=== PATIENT | female | born 1995 | race Two or more races ===

== ENCOUNTER 2024-07-28 12:59 | Emergency (ER) | payer MEDICAID, SELFPAY ==
[2024-07-28 12:59] VITALS: BMI 44.1
[2024-07-28 13:34] VITALS: BP 130/86; PULSE 87; RESP 18; TEMP 36.7; O2SAT 99
--- NOTE | 2024-07-28 14:01 | XR_ITS ---
Examination: CT abdomen and pelvis without contrast. Coronal 3-D reconstructions. Sagittal 2-D reconstructions. Date and time of exam:July 28, 2024 1652 hours Comparison 04/13/2024 INDICATIONS: Left-sided flank pain beginning today, diagnosis (moderate tumor 04/13/2024 CTDI: vol (mGy): 14 DLP: (mGycm): 791 Technique: Axial images of the abdomen have been obtained, 3 mm slice thickness Intravenous contrast material has not been administered. Low dose protocols were performed. One or more of the following dose reduction techniques were used; automated exposure control, adjustment of the mA and/or KV according to patient size, use of iterative reconstruction technique. 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
--- NOTE | 2024-07-28 14:02 | PD.EDRME ---
Rapid Medical Screening Exam RME Arrival date/time: 07/28/24 12:59 29-year-old female presents emergency department complaints of left-sided abdominal pain Chief Complaint: Abdominal Pain Time Seen by Provider: 07/28/24 13:57 Vital signs: Vital Signs Temperature 98.1 F 07/28/24 13:34 Pulse Rate 87 07/28/24 13:34 Respiratory Rate 18 07/28/24 13:34 Blood Pressure 130/86 H 07/28/24 13:34 Pulse Oximetry (%) 99 07/28/24 13:34 Oxygen Delivery Method Room Air 07/28/24 13:34
[2024-07-28 14:42] LABS: Basophils % (Auto) 1 % (0-2.5); Eosinophils # (Auto) 0.2 Thou/mm3 (0.0-0.5); Eosinophils % (Auto) 3 % (0-10); Hematocrit 43.9 % (36.0-46.0); Hemoglobin 14.6 g/dL (12.0-16.0); Immature Granulocytes % (Auto) 0 % (0-0); Immature Granulocytes Auto 0.02 Thou/mm3 (0.00-0.00); Lymphocytes # (Auto) 1.7 Thou/mm3 (1.0-4.8); Lymphocytes % (Auto) 26 % (10-50); Mean Corpuscular HGB Conc 33.3 g/dl (31.0-37.0); Mean Corpuscular Volume 87 fL (80-100); Monocytes # (Auto) 0.6 Thou/mm3 (0.0-0.8); Monocytes % (Auto) 9 % (0-12); Neutrophils # (Auto) 3.9 Thou/mm3 (1.8-7.7); Neutrophils % (Auto) 61 % (37-80); Nucleated Red Blood Cell % 0 /100 WBC (0); Platelet Count 335 Thou/mm3 (140-440); RDW Standard Deviation 42.5 fL (36.4-46.3); Red Blood Count 5.04 Miln/mm3 (4.00-5.20); White Blood Count 6.4 Thou/mm3 (3.6-11.0)
[2024-07-28 14:54] LABS: Collection Type, Urine Clean Catch
[2024-07-28 15:01] LABS: Alanine Aminotransferase 28 U/L (10-49); Albumin, Serum 4.9 gm/dL (3.5-5.0); Albumin/Globulin Ratio 1.5 (1.2-2.2); Alkaline Phosphatase 88 U/L (46-116); Anion Gap 10 (7-16); Aspartate Amino Transferase 23 U/L (0-34); BUN/Creatinine Ratio 16 Ratio (12-20); Bilirubin,Total 0.6 mg/dL (0.3-1.2); Blood Urea Nitrogen 11 mg/dL (9-23); Calcium 9.9 mg/dL (8.3-10.6); Calcium (Corrected) 9.9 mg/dL (8.5-10.1); Carbon Dioxide 27.5 mMol/L (20.0-31.0); Chloride 102 mMol/L (98-107); Creatinine (Component) 0.7 mg/dL (0.6-1.3); Estimated Creatinine Clearance 135.6 mL/min (>60); Globulin 3.3 gm/dL (2.3-3.5); Glucose 106 mg/dL (74-106); Lipase 40 U/L (12-53); Osmolality,Calculated 276 (275-295); Potassium 4.1 mMol/L (3.4-5.1); Sodium 139 mMol/L (136-145); Total Protein 8.2 gm/dL (5.7-8.2); eGFR > 60 See Note
[2024-07-28 15:06] LABS: HCG Qualitative,Urine Negative
[2024-07-28 15:09] LABS: Bilirubin,Urine Negative (Negative); Blood,Urine Negative (Negative); Color,Urine Yellow (Lt Yel-Yel); Culture Indicated,Urine Not Indicated; Glucose, Urine Negative (Negative); Ketones,Urine Negative (Negative); Leukocyte Esterase,Urine Negative (Negative); Nitrite,Urine Negative (Negative); PH,Urine 6.5 (5.0-7.0); Protein,Urine 1+ (Neg - Trace); RBC,Urine 5 /hpf (0-3); Squamous Epithelial Cell,Urine 17 /hpf (0-5); Urobilinogen,Urine Negative mg/dL (0.0-1.0); WBC,Urine 2 /hpf (0-5)
[2024-07-28 15:16] LABS: Clarity,Urine Hazy (Clear/Hazy)
[2024-07-28] MEDS: HYDROcodone/APAP 5/325 TABLET 1 TAB PO (16:02)
[2024-07-28 19:42] VITALS: BP 125/78; PULSE 77; RESP 17; TEMP 36.8; O2SAT 100
--- NOTE | 2024-07-28 20:41 | PD.EDABDPN ---
ED Abdominal Pain RME/HPI General Chief Complaint: Abdominal Pain Stated complaint: LEFT UPPER ABD. PAIN WITH NAUSEA X1 WK Time seen by provider: 07/28/24 13:57 Arrival date/time: 07/28/24 12:59 RME / HPI RME / HPI narrative: 07/28/24 12:59 29-year-old female presents emergency department complaints of left-sided abdominal pain DR. WALKER MAIN ED EVALUATION: Related Data Previous Rx's ?Medication ?Instructions ?Recorded meloxicam 7.5 mg tablet 7.5 mg PO QDAY #14 tabs 05/21/23 ondansetron 4 mg disintegrating 4 mg PO Q8H #10 tabs 05/21/23 tablet ibuprofen 800 mg tablet 800 mg PO TID PRN pain #30 tabs 11/05/23 Allergies Allergy/AdvReac Type Severity Reaction Status Date / Time egg Allergy Severe Swelling Verified 07/28/24 13:01 salmon oil Allergy Severe Swelling Verified 07/28/24 13:01 of Lip/Tongue/Throat Course Orders Category Date Time Status CT abdomen pelvis wo con Stat Exams 07/28/24 14:01 Completed CBC Stat Lab 07/28/24 14:06 Completed Comprehensive Metabolic Panel Stat Lab 07/28/24 14:06 Completed HCG Qualitative,Urine Stat Lab 07/28/24 14:45 Completed Lipase Stat Lab 07/28/24 14:06 Completed UA, C/S IF [Urinalysis, C/S if Indicated] Stat Lab 07/28/24 14:45 Completed HYDROcodone*/APAP 5/325 [[place] 5/325] Med 07/28/24 14:01 Discontinued 1 tab PO X1 ONE Vital Signs Vital signs: Vital Signs Temperature 98.1 F 07/28/24 13:34 Pulse Rate 87 07/28/24 13:34 Respiratory Rate 18 07/28/24 13:34 Blood Pressure 130/86 H 07/28/24 13:34 Pulse Oximetry (%) 99 07/28/24 13:34 Oxygen Delivery Method Room Air 07/28/24 13:34 Abdominal Pain MDM Medications / Prescriptions Medication administrations:: Medication Administration History Discontinued Medications Hydrocodone Bitart/Acetaminophen (Hydrocodone/Apap 5/325 Tablet) 1 tab PO X1 ONE Stop: 07/28/24 14:02 Last Admin: 07/28/24 16:02 Dose: 1 tab Documented By: Discharge Plan Prescriptions/Referrals Prescriptions/Med Rec: No Action ondansetron 4 mg tablet,disintegrating 4 mg PO Q8H Qty: 10 0RF meloxicam 7.5 mg tablet 7.5 mg PO QDAY Qty: 14 0RF ibuprofen 800 mg tablet 800 mg PO TID PRN (Reason: pain) Qty: 30 0RF Referrals: Rocco Palmer MD [Primary Care Provider] - In 1 week Patient/Caregiver Discharge Instructions Print Language: Cook Islander
[2024-07-28 23:32] VITALS: BP 137/96; PULSE 92; RESP 17; TEMP 36.9; O2SAT 98
--- NOTE | 2024-07-28 23:33 | PC.NURSE ---
Pt placed in old triage room for MD evaluation; vital signs obtained.
--- NOTE | 2024-07-29 00:01 | EDNOTE_ITS ---
ED Abdominal Pain RME/HPI General Chief Complaint: Abdominal Pain Stated complaint: LEFT UPPER ABD. PAIN WITH NAUSEA X1 WK Time seen by provider: 07/28/24 13:57 Arrival date/time: 07/28/24 12:59 Limitations: no limitations RME / HPI RME / HPI narrative: Dr. Garces's Main ED Evaluation: 29yo female presents to the ED for a chief complaint of LUQ pain x 2 days. Patient states her pain has been progressively getting worse, so she came in for evaluation. No radiation or migration. She's been using salonpas patches without any improvement. She reports mild dysuria and constipation. She notes she was lifting a heavy object the other day and has had pain since. She denies any fever, chills, nausea, vomiting or any other associated symptoms. Related Data Previous Rx's ?Medication ?Instructions ?Recorded meloxicam 7.5 mg tablet 7.5 mg PO QDAY #14 tabs 05/21/23 ondansetron 4 mg disintegrating 4 mg PO Q8H #10 tabs 05/21/23 tablet ibuprofen 800 mg tablet 800 mg PO TID PRN pain #30 tabs 11/05/23 diazepam 5 mg tablet 5 mg PO BID PRN muscle spasm #4 07/29/24 tabs Allergies Allergy/AdvReac Type Severity Reaction Status Date / Time egg Allergy Severe Swelling Verified 07/28/24 13:01 salmon oil Allergy Severe Swelling Verified 07/28/24 13:01 of Lip/Tongue/Throat Review of Systems Review of Systems Systems Reviewed: All systems reviewed, normal except as documented Past Medical History Past Medical History NEUROLOGIC: Positive Migraine; Negative Neurological Disorders or Seizures CARDIAC: Negative Cardiac Disorders, Congestive Heart Failure, Edema, Cellulitis or Varicose Veins RESPIRATORY: Negative Chronic Obstructive Pulmonary Disease (COPD), Asthma, Tuberculosis, Pulmonary Embolism or Sleep Apnea GASTROINTESTINAL: Negative Gastrointestinal Disorders, Hepatitis or Gall Bladder Disease GENITOURINARY: Negative Genitourinary Disorders or Renal Disease REPRODUCTIVE: Negative Previous Pregnancies MUSCULOSKELETAL: Negative Musculoskeletal Disorders ENDOCRINE: Negative Endocrine Disorders, Diabetes Mellitus Type 1 or Diabetes Mellitus Type 2 HEMATOLOGIC: Negative Blood Disorders or Sickle Cell Disease OTHER HISTORY: Negative Hospitalization, Autoimmune Disease, Shingles, Falls, Blood Transfusions, Blood Transfusion Reaction, Anesthesia Reactions, Chemotherapy, Radiation Therapy, MRSA, Chicken Pox, Measles, Mumps or Cancer Family History FAMILY HISTORY: Positive Family Surgery; Negative Family Psychiatric Problems, Family Respiratory Disorders, Family Cardiac Disorders, Family Gastrointestinal Problems, Family Cancer or Family Anesthesia Reaction Surgical History SURGICAL: Negative Cardiac Surgery or Pacemaker Social History SMOKING STATUS: Never smoker ED Exam General Limitations: Present no limitations General appearance: Present alert and in no apparent distress Head Head exam: Present atraumatic Eye Eye exam: Present normal appearance, PERRL and EOMI ENT ENT exam: Present normal exam, normal oropharynx and mucous membranes moist Neck Neck exam: Present normal inspection, full ROM and trachea midline Chest Chest inspection: Present normal inspection, symmetric chest wall rise and other (no rash) Respiratory Respiratory exam: Present normal lung sounds bilaterally Cardiovascular Cardiovascular exam: Present regular rate, normal rhythm and normal heart sounds Abdominal Exam Abdominal exam: Present soft and normal bowel sounds Extremities Exam Extremities exam: Present normal inspection and full ROM Back Exam Back exam: Present normal inspection and full ROM Neurological Exam Neurological exam: Present alert, oriented X3 and CN II-XII intact Psychiatric Psychiatric exam: Present normal affect and normal mood Skin Skin exam: Present warm, dry, intact and normal color Course Quality Measures none Orders Category Date Time Status CT abdomen pelvis wo con Stat Exams 07/28/24 14:01 Completed CBC Stat Lab 07/28/24 14:06 Completed Comprehensive Metabolic Panel Stat Lab 07/28/24 14:06 Completed HCG Qualitative,Urine Stat Lab 07/28/24 14:45 Completed Lipase Stat Lab 07/28/24 14:06 Completed UA, C/S IF [Urinalysis, C/S if Indicated] Stat Lab 07/28/24 14:45 Completed Diazepam [Valium] Med 07/29/24 00:16 Discontinued 5 mg PO X1 ONE HYDROcodone*/APAP 5/325 [[place] 5/325] Med 07/28/24 14:01 Discontinued 1 tab PO X1 ONE Ketorolac Inj [Toradol Inj] Med 07/29/24 00:16 Discontinued 30 mg IM X1 ONE Reevaluation(s) Reevaluation #1: Patient states she feels significantly better after receiving Toradol and feels comfortable going home. Time: 01:20 Vital Signs Vital signs: Vital Signs Temperature 98.1 F 07/28/24 13:34 Pulse Rate 87 07/28/24 13:34 Respiratory Rate 18 07/28/24 13:34 Blood Pressure 130/86 H 07/28/24 13:34 Pulse Oximetry (%) 99 07/28/24 13:34 Oxygen Delivery Method Room Air 07/28/24 13:34 Abdominal Pain MDM Patient data External records reviewed:: [facility] previous records (Per chart review, patient was seen here on 04/13/24 for abdominal pain.) Clinical information provided by:: patient Social determinants that could affect healthcare access:: none Patient has the following chronic illnesses:: none How is presenting disease/condition affected by chronic disease/condition?: no chronic disease Evaluation data The following diagnostics were reviewed and interpreted by me:: lab results and radiology exam(s) Lab and/or radiology exams considered but not ordered:: none Interpretation Summary: CBC is normal, CMP is normal, Lipase is normal, UA is unremarkable, HCG is negative, according to my interpretation. ---- [facility] Report Signed Patient: MAGI NDIAYE Record#: [id number] Birthdate: 1995 Age/Sex: 29 / F Location: [facility] Attending Dr: Ordering Physician: Soheila CORNEJO)Adam NP Date of Service: 07/28/24 Procedure(s): CT abdomen pelvis wo con Accession Number(s): [id number] cc: Soheila CORNEJO),Adam ALEXIS; Rocco Pamler MD; Nolan Joiner MD~ Examination: CT abdomen and pelvis without contrast. Coronal 3-D reconstructions. Sagittal 2-D reconstructions. Date and time of exam:July 28, 2024 1652 hours Comparison 04/13/2024 INDICATIONS: Left-sided flank pain beginning today, diagnosis (moderate tumor 04/13/2024 CTDI: vol (mGy): 14 DLP: (mGycm): 791 Technique: Axial images of the abdomen have been obtained, 3 mm slice thickness Intravenous contrast material has not been administered. Low dose protocols were performed. One or more of the following dose reduction techniques were used; automated exposure control, adjustment of the mA and/or KV according to patient size, use of iterative reconstruction technique. 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 Dictated By: Nolan Joiner MD Signed By: <Electronically signed by Nolan Joiner MD in [place]> 07/28/24 1716 Medications / Prescriptions Medications or Prescriptions considered but not ordered:: none Medication administrations:: Medication Administration History Discontinued Medications Hydrocodone Bitart/Acetaminophen (Hydrocodone/Apap 5/325 Tablet) 1 tab PO X1 ONE Stop: 07/28/24 14:02 Last Admin: 07/28/24 16:02 Dose: 1 tab Documented By: Diazepam (Diazepam 5 Mg Tablet) 5 mg PO X1 ONE Stop: 07/29/24 00:17 Last Admin: 07/29/24 00:32 Dose: 5 mg Documented By: CVL Ketorolac Tromethamine (Ketorolac Inj 60 Mg/2 Ml Vial) 30 mg IM X1 ONE Stop: 07/29/24 00:17 Last Admin: 07/29/24 00:32 Dose: 30 mg Documented By: CVL see above Consultations Consultation(s) initiated? (list below): No Diagnosis Differential diagnosis abdominal pain: other (muscle strain, pneumonia, renal stone, UTI, zoster) Most likely diagnosis given after review of the tests above:: see below Admission Indicated Admission indicated?: not indicated Admission Request Was there a request for admission?: No Disposition Plan Disposition Plan: Discharge Discharge Attestation Discharge Attestation: The patient and all family members were given an opportunity to ask questions and understood the discharge instructions. Discharge instructions specifically effects, indications for sooner follow up or return to the emergency department, and the expected course of current diagnosis. Patient condition: Stable Discharge Plan Plan Patient Disposition: HOME (Self Care) Patient condition on transfer: Stable Prescriptions/Referrals Prescriptions/Med Rec: New diazepam 5 mg tablet 5 mg PO BID PRN (Reason: muscle spasm) Qty: 4 0RF No Action ondansetron 4 mg tablet,disintegrating 4 mg PO Q8H Qty: 10 0RF meloxicam 7.5 mg tablet 7.5 mg PO QDAY Qty: 14 0RF ibuprofen 800 mg tablet 800 mg PO TID PRN (Reason: pain) Qty: 30 0RF Referrals: Rocco Palmer MD [Primary Care Provider] - In 1 week Problem List Clinical Impression: Acute left flank pain Patient/Caregiver Discharge Instructions Education Materials: Muscle Spasm Additional Instructions: Return to emergency department worsening symptoms or concerns. You will need to follow-up with your primary care physician to get a outpatient ultrasound for a dermoid cyst that was noted on your ultrasound. Return sooner if you have any worsening pain, or any other concerns. Print Language: Mohawk Stand Alone Forms: Sugar Award Info., Work/School Release, Patient Portal Info Letter
[2024-07-29] MEDS: DIAZEPAM 5 MG TABLET PO (00:32)
[2024-07-29] MEDS: KETOROLAC INJ 60 MG/2 ML VIAL 30 MG IM (00:32)
[2024-07-29 02:03] VITALS: RESP 18
== END 2024-07-29 02:03 | disposition home or self-care (01) ==
PROVIDERS: Nurse Practitioner Primary Care; Emergency Provider Emergency Medicine; PCP Family Medicine
DX: R10.12 Left upper quadrant pain (principal); K59.00 Constipation, unspecified
CPT/HCPCS: 36415; 74176; 80053; 81001; 81025; 83690; 85025; 96372; 99284; J1885; A9270